=== PATIENT | female | born 1970 | race Caucasian/White ===

== ENCOUNTER → 2017-02-15 | Outpatient (CLI) | payer BC | LOC: MC.RAD 14:40 | DX: Z12.31 Encounter for screening mammogram for malignant neoplasm of breast (principal) ==

== ENCOUNTER → 2021-10-22 | Outpatient (CLI) | payer OTHER | LOC: MC.RAD 16:52 | DX: Z12.31 Encounter for screening mammogram for malignant neoplasm of breast (principal); N63.23 Unspecified lump in the left breast, lower outer quadrant ==

== ENCOUNTER → 2021-10-29 | Outpatient (CLI) | payer OTHER | LOC: MC.RAD 06:54 | DX: N60.02 Solitary cyst of left breast (principal) ==

== ENCOUNTER → 2022-05-10 | Outpatient (CLI) | payer OTHER | LOC: MC.RAD 04-29 11:00 | DX: N60.12 Diffuse cystic mastopathy of left breast (principal) ==

== ENCOUNTER → 2023-07-04 | Outpatient (CLI) | payer OTHER | LOC: COL.RAD 10:21 | DX: R11.0 Nausea (principal) ==

== ENCOUNTER 2023-09-23 12:18 | Outpatient (RCR) | payer OTHER | END 2023-09-25 | disposition home or self-care (01) | LOC: COL.CR | DX: I50.20 Unspecified systolic (congestive) heart failure (principal) ==

== ENCOUNTER → 2023-10-26 | Outpatient (RCR) | payer OTHER | END | disposition home or self-care (01) | LOC: COL.CR | DX: I50.22 Chronic systolic (congestive) heart failure (principal) ==

== ENCOUNTER 2023-11-04 12:15 | Outpatient (RCR) | payer OTHER | END 2023-11-24 | disposition home or self-care (01) | LOC: COL.CR | DX: I50.22 Chronic systolic (congestive) heart failure (principal) ==

== ENCOUNTER 2024-05-08 08:05 | Emergency (ER) | payer OTHER ==
[~2024-05-08] VITALS: Ht 165.1 cm; Wt 81.8 kg
[2024-05-08] MEDS ORDERED: NS 1,000 ML IV ONE (08:30)
[2024-05-08] MEDS ORDERED: Acetaminophen 325 MG TAB PO ONE (08:30)
[2024-05-08 08:40] LABS: HEMATOCRIT 40.8 % (37.0-47.0); HEMOGLOBIN 14.3 g/dl (12.5-16.0); MEAN CELL VOLUME 95 fl (80.0-100.0); MEAN CORPUSCULAR HEMOGLOBIN 33 pg (27-31); MEAN CORPUSCULAR HGB CONC 35 g/dl (33.0-37.0); PLATELET COUNT 241 K/mm3 (130-400); RED BLOOD COUNT 4.28 M/mm3 (4.10-5.30); REDCELL DISTRIBUTION WIDTH-CV 12.2 % (11.5-14.5)
[2024-05-08 08:54] LABS: ALANINE AMINOTRANSFERASE 24 U/L (0-55); ALBUMIN 3.3 g/dL (3.5-5.0); ALKALINE PHOSPHATASE 67 U/L (40-150); ANION GAP 12 mmol/L (7-16); AST,SGOT 20 U/L (5-34); BILIRUBIN,TOTAL 0.4 mg/dL (0.2-1.2); BLOOD UREA NITROGEN 13 mg/dL (10-20); CALCIUM 9.2 mg/dL (8.4-10.2); CHLORIDE 98 mEq/L (98-107); CREATININE, serum 0.98 mg/dL (0.57-1.11); GLUCOSE 154 mg/dL (70-99); POTASSIUM 3.6 mEq/L (3.5-4.5); SODIUM 128 mEq/L (136-145); TOTAL PROTEIN 7.6 g/dl (6.2-8.1)
[2024-05-08 09:01] LABS: TROPONIN-I < 0.010 ng/mL (0.00-0.033)
[2024-05-08 09:21] LABS: BAND 36 % (0-10); EOSINOPHIL 1 % (0-4); LYMPHOCYTE 21 % (20.0-51.0); METAMYELOCYTE 1 % (0-0); NEUTROPHILS 25 % (42.0-75.2); PLATELET ESTIMATE NORMAL (NORMAL)
[2024-05-08 10:08] LABS: COLLECTION METHOD CLEAN CATCH
[2024-05-08 10:25] LABS: PH 5.5 (5.0-8.5); URINE APPEARANCE Clear (CLEAR/HAZY); URINE BLOOD Negative (NEGATIVE); URINE COLOR Yellow (YELLOW); URINE GLUCOSE Negative (NEGATIVE); URINE KETONE Negative (NEGATIVE); URINE NITRATE Negative (NEGATIVE); URINE PROTEIN(semi-quant) Negative (NEGATIVE); URINE UROBILINOGEN 0.2 E.U/dL (0.2-1.0)
[2024-05-08] MEDS ORDERED: ASPIRIN 81M81 MG/TA2 PO (12:09)
[2024-05-08] MEDS ORDERED: BUMEX 1MG TA1 MG/TA1 PO (12:09)
[2024-05-08] MEDS ORDERED: FARXIGA10 PO (12:09)
[2024-05-08] MEDS ORDERED: ALDACTONE 25MG25 M1 PO (12:09)
[2024-05-08] MEDS ORDERED: PRINIVIL2.5 MG PO (12:09)
[2024-05-08] MEDS ORDERED: MAG-OX 400400 MG/TAB PO (12:09)
[2024-05-08] MEDS ORDERED: ENTRESTO 24 MG1 EACH PO (12:10)
[2024-05-08] MEDS ORDERED: TOPROL XL 25MG25 MG PO (12:10)
[2024-05-08] MEDS ORDERED: Ondansetron 4 MG/2 ML VIAL IV ONE (12:30)
[2024-05-08] MEDS ORDERED: ELIQUIS 5MG PO (12:41)
[2024-05-08 16:29] VITALS: BP 107/53; PULSE 120; TEMP 98.4
== END 2024-05-08 16:29 | disposition short-term general hospital (02) ==
LOC: COL.ER 08:05
PROVIDERS: Emergency Medicine
DX: D72.825 Bandemia (principal)
CPT/HCPCS: J2405; J2543; J3370; J7030; J7050

== ENCOUNTER → 2024-06-06 | Outpatient (CLI) | payer OTHER ==
[~2024-06-06] MED LIST: ALDACTONE 25MG25 M1 PO; ASPIRIN 81M81 MG/TA2 PO; BUMEX 1MG TA1 MG/TA1 PO; ELIQUIS 5MG PO; ENTRESTO 24 MG1 EACH PO; FARXIGA10 PO; MAG-OX 400400 MG/TAB PO; PRINIVIL2.5 MG PO; TOPROL XL 25MG25 MG PO
== END ==
LOC: MC.RAD 09:57
DX: Z12.31 Encounter for screening mammogram for malignant neoplasm of breast (principal); Z01.419 Encounter for gynecological examination (general) (routine) without abnormal findings